=== PATIENT | male | born 1980 | race Caucasian/White ===

== ENCOUNTER 2019-10-02 13:03 | Emergency (ER) | payer OTHER, MEDICARE ==
[~2019-10-02] VITALS: Ht 175.3 cm; Wt 79.4 kg
[2019-10-02 15:55] VITALS: BP 123/83
== END 2019-10-02 17:15 | disposition home or self-care (01) ==
LOC: ER 13:07
DX: M54.2 Cervicalgia (principal); M54.5 Low back pain; M62.830 Muscle spasm of back; V43.52XA Car driver injured in collision with other type car in traffic accident, initial encounter; Y93.89 Activity, other specified; Y92.89 Other specified places as the place of occurrence of the external cause; Y99.8 Other external cause status
CPT/HCPCS: 72040; 72100